=== PATIENT | male | born 2000 | race Caucasian/White ===

== ENCOUNTER 2022-04-19 12:42 | Emergency (ER) | payer BC, SELFPAY ==
[~2022-04-19 12:42] MED LIST: Sodium Chloride 0.9% 500 ML BAG ONE
[2022-04-19] MEDS ORDERED: Ondansetron PF 4 MG/2 ML Vial ONE (12:59)
[2022-04-19] MEDS ORDERED: Sodium Chloride 0.9% 1,000 ML ONE ×3 (12:59→14:02)
[2022-04-19 13:45] LABS: #Basophils 0.1 thou/uL (0.0-0.2); #Lymphocytes 0.3 thou/uL (1.20-3.40); #Monocytes 0.7 thou/uL (0.11-0.59); #Neutrophils 10.9 thou/uL (1.40-6.50); %Basophils 0.6 % (0.0-1.0); %Lymphocytes 2.5 % (21.0-51.0); %Monocytes 5.6 % (0.0-10.0); %Neutrophils 91.3 % (42.0-75.0); Hemoglobin 17.3 g/dL (14.0-18.0); Mean Corpuscular HGB CONC 33.6 g/dL (32.0-36.0); Mean Corpuscular Hemoglobin 29.8 pg (27.0-31.0); Mean Corpuscular Volume 88.8 fl (78.0-98.0); Platelet Count 272 10x3/uL (130-400); RBC Distribution Width 11.3 % (11.5-14.5); Red Blood Cell (RBC) Count 5.79 mill/uL (4.70-6.10); White Blood Cell (WBC) Count 11.9 10x3/uL (4.8-10.8)
[2022-04-19 14:03] LABS: ALT (SGPT) 60 U/L (8-55); AST (SGOT) 19 U/L (5-34); Albumin 4.8 g/dL (3.5-5.0); Alkaline Phosphatase 61 U/L (40-110); Anion Gap 15 mmol/L (10-20); BUN (Urea Nitrogen) 15 mg/dL (8.9-20.6); Bilirubin, Total 0.9 mg/dL (0.2-1.2); Calc. Creatinine Clearance 0 mL/min (70-130); Calcium 9.9 mg/dL (7.8-10.44); Carbon Dioxide 25 mmol/L (22-29); Chloride 104 mmol/L (98-107); Estimated GFR 115; Globulin 3.2 g/dL (2.4-3.5); Glucose 104 mg/dL (70-105); Lipase 5 U/L (8-78); Potassium 3.9 mmol/L (3.5-5.1); Sodium 140 mmol/L (136-145)
[2022-04-19] MEDS ORDERED: Promethazine HCl 25 MG/ML VIAL ONE (15:37)
[2022-04-19] MEDS ORDERED: Acetaminophen 500 MG TAB ONE ×2 (16:15→17:15)
[2022-04-19] MEDS ORDERED: Ibuprofen 200 MG TAB ONE (16:16)
== END 2022-04-19 18:00 | disposition home or self-care (01) ==
LOC: MADERS 12:42
DX: R11.2 Nausea with vomiting, unspecified (principal); R19.7 Diarrhea, unspecified; E86.0 Dehydration; Z20.822 Contact with and (suspected) exposure to COVID-19
CPT/HCPCS: 80053; 83690; 85025; 87804; 96361; 96374; 96375; J2405; J2550; J7030; J7050; U0003; U0005